=== PATIENT | male | born 1960 | race Caucasian/White ===

== ENCOUNTER 2017-04-22 06:34 | Day surgery (SDC) | payer OTHER ==
[~2017-04-22 06:34] MED LIST: Lactated Ringers 1,000 ML IV SCH; ceFAZolin 2 GM in Premix Bag 1 BAG IV SCH
[2017-04-22] MEDS ORDERED: fentaNYL 100 MCG/2 ML SDV IVPUSH PRN ×2 (07:13→09:14)
[2017-04-22] MEDS ORDERED: Midazolam 1 MG/ML 2 ML SDV IVPUSH ONE (07:13)
--- NOTE | 2017-04-22 07:24 | PCM.PREANE ---
Preanesthetic Assessment - Anesthesia/Transfusion/Family Hx Anesthesia History: Prior Anesthesia Without Reaction Family History of Anesthesia Reaction: No Transfusion History: No Prior Transfusion(s) - Review of Systems General: No Symptoms Pulmonary: No Symptoms Cardiovascular: No Symptoms Gastrointestinal: No Symptoms Neurological: No Symptoms Other: Reports: None - Physical Assessment NPO Status Date: 04/21/17 NPO Status Time: 22:00 O2 Sat by Pulse Oximetry: 92 Respiratory Rate: 14 Vital Signs: Last Vital Signs Temp 36.5 C 04/22/17 06:45 Pulse 77 04/22/17 06:45 Resp 14 04/22/17 06:45 BP 132/79 04/22/17 06:45 Pulse Ox 92 L 04/22/17 06:45 Height: 1.73 m Weight: 113.852 kg ASA Class: 2 Mental Status: Alert & Oriented x3 Airway Class: Mallampati = 2 Dentition: Reports: Missing Tooth/Teeth ROM/Head Extension: Full Lungs: Clear to Auscultation, Normal Respiratory Effort Cardiovascular: Regular Rate, Regular Rhythm - Allergies Allergies/Adverse Reactions: Allergies Allergy/AdvReac Type Severity Reaction Status Date / Time No Known Allergies Allergy Verified 01/14/16 12:45 - Anesthesia Plan Pre-Op Medication Ordered: Other (versed and fentanyl for block placement) - Acknowledgements Anesthesia Type Planned: General Anesthesia, Regional Block Pt an Appropriate Candidate for the Planned Anesthesia: Yes Alternatives and Risks of Anesthesia Discussed w Pt/Guardian: Yes Pt/Guardian Understands and Agrees with Anesthesia Plan: Yes Additional Comments: block used for post op pain controll, not as primary anesthetic. PreAnesthesia Questionnaire - Past Health History Medical/Surgical History: Denies Medical/Surgical History HEENT History: Reports: Other (See Below) Other HEENT History: wears glasses, has dentures but does not wear them Cardiovascular History: Reports: High Cholesterol Respiratory History: Reports: Other (See Below) Other Respiratory History: smoked 2 packs of cigarettes for many years "down to 1 1/2 pks per day" Gastrointestinal History: Reports: None Genitourinary History: Reports: None Musculoskeletal History: Reports: Arthritis Other Musculoskeletal History: arthritis in knees Neurological History: Reports: Other (See Below) Other Neuro History: "pinched nerve" in neck Psychiatric History: Reports: None Endocrine/Metabolic History: Reports: Obesity/BMI 30+ Hematologic History: Reports: None Immunologic History: Reports: None Oncologic (Cancer) History: Reports: None Dermatologic History: Reports: None - Past Surgical History Head Surgeries/Procedures: Reports: None HEENT Surgical History: Reports: None Cardiovascular Surgical History: Reports: None Respiratory Surgical History: Reports: None GI Surgical History: Reports: Colonoscopy, Hernia, Inguinal Male Surgical History: Reports: None Endocrine Surgical History: Reports: None Neurological Surgical History: Reports: None Musculoskeletal Surgical History: Reports: Carpal Tunnel, Other (See Below) Other Musculoskeletal Surgeries/Procedures:: repair of finger tips right hand Oncologic Surgical History: Reports: None Dermatological Surgical History: Reports: None - SUBSTANCE USE Smoking Status *Q: Current Every Day Smoker Tobacco Use Within Last Twelve Months: Cigarettes Second Hand Smoke Exposure: Yes Days Per Week of Alcohol Use: 2 Number of Drinks Per Day: 2 Total Drinks Per Week: 4 Recreational Drug Use History: No Recreational Drug Type: Reports: Marijuana/Hashish - HOME MEDS Home Medications: Home Meds Acetaminophen [Tylenol Extra Strength] 2 tab PO ASDIRECTED PRN 04/17/17 [History ] Diclofenac Sodium [Voltaren] 1 tab PO BID 04/17/17 [History] - CURRENT (IN HOUSE) MEDS Current Meds: Current Medications Hydrocodone Bitart/Acetaminophen ([place] 325-10 Mg) 1 - 2 tab PO Q4H PRN PRN Reason: Pain Fentanyl (Sublimaze) 50 mcg IVPUSH Q5M PRN PRN Reason: Pain Cefazolin Sodium/Dextrose 2 gm (/ Premix) 50 mls @ 100 mls/hr IV ONCALL ANDIE Lactated Ringer's (Ringers, Lactated) 1,000 mls @ 100 mls/hr IV ASDIRECTED [facility] Last Admin: 04/22/17 07:12 Dose: 100 mls/hr Ketorolac Tromethamine (Toradol) 10 mg PO Q6H PRN PRN Reason: Pain Stop: 04/27/17 08:01 Discontinued Medications Midazolam HCl (Versed 1 Mg/Ml) 2 mg IVPUSH ONETIME ONE Stop: 04/22/17 07:14
[2017-04-22] MEDS ORDERED: Dexamethasone 4 MG/ML 5 ML MDV ONE ×2 (07:27→07:39)
[2017-04-22] MEDS ORDERED: Bupivacaine 0.5% 30 ML SDV ONE (07:29)
[2017-04-22] MEDS ORDERED: diphenhydrAMINE 50 MG/ML SDV ONE (07:39)
[2017-04-22] MEDS ORDERED: Succinylcholine/Normal Saline 200 MG/10 ML Syringe ONE (07:39)
[2017-04-22] MEDS ORDERED: Midazolam 1 MG/ML 2 ML SDV ONE (07:39)
[2017-04-22] MEDS ORDERED: Propofol 200 MG/20 ML SDV ONE (07:39)
[2017-04-22] MEDS ORDERED: Ondansetron 4 MG/2 ML SDV ONE (07:39)
[2017-04-22] MEDS ORDERED: Rocuronium 10 MG/ML 10 ML Syringe ONE (07:39)
[2017-04-22] MEDS ORDERED: Lidocaine 2% Jelly 30 ML Tube ONE (07:40)
[2017-04-22] MEDS ORDERED: fentaNYL 250 MCG/5 ML SDV ONE (07:40)
[2017-04-22] MEDS ORDERED: Lidocaine 2% 5 ML SDV ONE (07:40)
[2017-04-22] MEDS ORDERED: Acetaminophen/HYDROcodone 325-10 MG Tab PO PRN (08:00)
[2017-04-22] MEDS ORDERED: Ketorolac 10 MG Tab PO PRN (08:00)
--- NOTE | 2017-04-22 08:52 | PCM.SN ---
- Free Text/Narrative Note: procedure note: placement of interscalene block for post op pain managemen. procedure explained, risks discussed, consent obtained, full monitors, skin preped with chloroprep, lido skin wheel. nerve stimulator used, no parestheia or blood, dosed in 5 ml increments with 0.5% bupivicaine (28 ml) and 8 mf dexamethasone. No comps.
[2017-04-22] MEDS ORDERED: Phenylephrine/Normal Saline 100 MCG/ML 10 ML Syringe ONE (09:48)
--- NOTE | 2017-04-22 10:51 | PCM.OPNOTE ---
- General Post-Op/Procedure Note Date of Surgery/Procedure: 04/22/17 Operative Procedure(s): R shoulder scope with SAD, extensive debridement including biceps tenotomy, DCE, and RTCR Post-Op Diagnosis: R shoulder impingement, degenerative ant/post labral tear, biceps tendonopathy, DJD AC joint, RTC tear Anesthesia Technique: General ET Tube, Regional Block Primary Surgeon: Antoinette Pena Biometrics Head: Scooter Rodriguez in mLs: 10 Condition: Good Free Text/Narrative:: #[id number]
--- NOTE | 2017-04-22 11:27 | PCM.POSTAN ---
POST ANESTHESIA ASSESSMENT - MENTAL STATUS Mental Status: Alert, Oriented - RESPIRATORY Respiratory Status: Respiratory Rate WNL, Airway Patent, O2 Saturation Stable - CARDIOVASCULAR CV Status: Pulse Rate WNL, Blood Pressure Stable - GASTROINTESTINAL GI Status: No Symptoms - PAIN Pain Score: 0 - POST OP HYDRATION Hydration Status: Adequate & Stable
--- NOTE | 2017-04-22 12:57 | PCM48HPAN ---
Post Anesthesia Note - EVALUATION WITHIN 48HRS OF ANESTHETIC Vital Signs in Normal Range: Yes Patient Participated in Evaluation: Yes Respiratory Function Stable: Yes Airway Patent: Yes Cardiovascular Function Stable: Yes Hydration Status Stable: Yes Pain Control Satisfactory: Yes Nausea and Vomiting Control Satisfactory: Yes Mental Status Recovered: Yes
[2017-04-22 14:13] VITALS: BP 116/72
--- NOTE | 2017-04-22 17:05 | OR ---
SURGEON: Antoinette Pena MD DATE OF PROCEDURE: 04/22/2017 PREOPERATIVE DIAGNOSES: 1. Right shoulder impingement syndrome. 2. Right shoulder biceps tendinopathy. 3. Right shoulder rotator cuff tear. 4. Right acromioclavicular joint arthritis. POSTOPERATIVE DIAGNOSES: 1. Right shoulder impingement syndrome. 2. Right shoulder biceps tendinopathy. 3. Right shoulder rotator cuff tear. 4. Right acromioclavicular joint arthritis. 5. Degenerative anterior and posterior labral tear, right shoulder. PROCEDURES: Right shoulder arthroscopy with: 1. Subacromial decompression with release of coracoacromial ligament and acromioplasty. 2. Extensive debridement including debridement of the anterior and posterior degenerative labral tear and biceps tenotomy. 3. Arthroscopic distal clavicle excision. 4. Arthroscopic rotator cuff repair. DECORATION CHECKER: Scooter Rodriguez PA-C. ANESTHESIA: General with interscalene block. ESTIMATED BLOOD LOSS: 10 mL. TOURNIQUET TIME: Zero minutes. COMPLICATIONS: None. DVT PROPHYLAXIS: PAS boots to bilateral lower extremities. IMPLANTS USED: Two Arthrex 4.5 mm corkscrew anchors ([employer]). BRIEF HISTORY: Roosevelt is a 56-year-old male, who has had complaint of progressive right shoulder pain. Persistent right shoulder pain since an injury in February. He has continued to have pain with any type of activity. He did have an MRI, which showed a tear of the rotator cuff along with biceps tendinopathy and acromioclavicular joint arthritis. Due to his lack of response to conservative treatment, I did recommend surgical intervention. The risks and goals of procedure were discussed with the patient and documented preoperatively. He agreed to proceed. DESCRIPTION OF PROCEDURE: The patient was properly identified and brought to the operating room. He was transferred from the OR cart and placed on the operating room table in supine position. General anesthesia was administered. An interscalene block had been administered preoperatively. After adequate anesthesia was obtained, the patient was placed in a beach-chair type position. Care was taken to pad all bony prominences. The head was secured. The right upper extremity was then prepped in standard fashion using ChloraPrep solution. It was then sterilely draped. A time-out was performed to ensure correct site and procedure. Preoperative antibiotics were given. The surgical site had been marked preoperatively. A marking pen was used to identify the bony landmarks. Approximately 30 mL of normal saline was introduced into the glenohumeral joint. A posterior portal arthrotomy was established. Blunt trocar and cannula were introduced into the glenohumeral joint. Camera, inflow, and outflow were assembled. The rotator interval showed some synovitis. The subscapularis showed some degenerative fraying superiorly as well. An anterior portal was then established. The subscapularis was probed and did not appear to have any tearing. The subscapular recess showed no loose bodies. The biceps was then identified. It had synovitis noted at the attachment with some peel back of the attachment of the biceps to the labrum. The biceps was pulled into the joint. Longitudinal fissures were noted distally along the course of the tendon and was elected to proceed with a biceps tenotomy. This was performed with electrocautery. The edges were then smoothed. The anterior and posterior labrum were then inspected. Degenerative tearing was noted. This was resected with a shaver to a stable remnant. The glenoid along with humeral head showed no significant degenerative findings. Axillary pouch was visualized and no loose bodies were identified. Synovitis was noted. The arm was then brought into an abducted and externally rotated position. The bare area was noted posteriorly. As I progressed forward, there appeared to be a full-thickness tear of the anterior portion of the supraspinatus tendon. The arm was then brought back into a neutral position and instruments from were removed from the glenohumeral joint. The blunt trocar and cannula were then inserted into the subacromial space. Again camera, inflow, and outflow were assembled. A lateral portal was established and a shaver was inserted. An extensive bursectomy was performed to allow visualization in the subacromial space. The undersurface of the acromion was cleared. A type 2 acromion had been noted preoperatively. I did use a 5.0 mm dale to perform an acromioplasty following release of the coracoacromial ligament. This provided good decompression of the subacromial space. There was a full-thickness tear along the anterior portion of the supraspinatus. A small portion of cuff tissue remained attached to the footprint. I was able to visualize the humeral head. Soft tissue was then cleared from the acromioclavicular joint. The 5.0 mm dale was then inserted from the anterior portal. Approximately 8 mm of distal clavicle was excised using the dale. Care was taken to keep the superior capsule in place. I then turned my attention back to the rotator cuff. A cuff grasper was used. The edges of the cuff tear were quite frayed, however, I was able to easily pull the torn cuff back to the footprint. An awl was then placed just lateral to the articular cartilage edge and two 4.5 mm corkscrew anchors were placed. The sutures were then passed through the cuff tissue and were tied down without difficulty. I was able to get good reapproximation of the cuff tissue to the footprint. The tear was then probed. It was found to be nearly watertight. I did not feel that additional lateral row was needed. The suture ends were then trimmed. Instruments were then removed from the shoulder. The portal sites were closed with 3-0 nylon. Xeroform gauze was placed over the wound and a bulky dressing was applied. He was placed in a well-padded immobilizer. He was awakened from his anesthetic and transferred back to the operating room cart. He was brought to recovery room in stable condition. All needle and sponge counts were correct. PRIMARY SURGEON: SECONDARY SURGEON: REASON DECORATION CHECKER WAS NECESSARY: ROLE OF DECORATION CHECKER: JULISSA AVILES /[id number]
== END 2017-04-22 13:00 | disposition home or self-care (01) ==
LOC: MW.SDS 06:34
PROVIDERS: ATTEND Orthopaedic Surgery
DX: M75.121 Complete rotator cuff tear or rupture of right shoulder, not specified as traumatic (principal); M75.41 Impingement syndrome of right shoulder; M67.911 Unspecified disorder of synovium and tendon, right shoulder; S43.431A Superior glenoid labrum lesion of right shoulder, initial encounter; M19.011 Primary osteoarthritis, right shoulder; E78.00 Pure hypercholesterolemia, unspecified; F17.210 Nicotine dependence, cigarettes, uncomplicated; M17.0 Bilateral primary osteoarthritis of knee; E66.9 Obesity, unspecified; Z68.38 Body mass index [BMI] 38.0-38.9, adult; Z79.1 Long term (current) use of non-steroidal anti-inflammatories (NSAID); Z98.890 Other specified postprocedural states
CPT/HCPCS: 29824; 29826; 29827; C1713; J1100; J1200; J2250; J2405; J3010; J7120; 01610; 88304; J2704

== ENCOUNTER 2017-09-30 17:47 | Emergency (ER) | payer OTHER ==
--- NOTE | 2017-09-30 18:39 | EDM.PDOC ---
<Nova Van - Last Filed: 09/30/17 18:58> ED HPI GENERAL MEDICAL PROBLEM - General Chief Complaint: Lower Extremity Injury/Pain Stated Complaint: PAIN RT KNEE Time Seen by Provider: 09/30/17 18:36 Source of Information: Reports: Patient History Limitations: Reports: No Limitations - History of Present Illness INITIAL COMMENTS - FREE TEXT/NARRATIVE: History of present illness: []Patient has a torn ACL in his right knee has an appointment with Dr. Pena tomorrow. Patient was trying to get out of his car got caught up on the door, he held onto the door for about 20 minutes before someone was able to help him back into his vehicle. He is unable to put weight on the right knee very to pain. He denies hitting his knee on anything or falling to the ground. Review of systems: As per history of present illness and below otherwise all systems reviewed and negative. Past medical history: As per history of present illness and as reviewed below otherwise noncontributory. Surgical history: As per history of present illness and as reviewed below otherwise noncontributory. Social history: No reported history of drug or alcohol abuse. Family history: As per history of present illness and as reviewed below otherwise noncontributory. Physical exam: General: Well developed, well nourished in NAD HEENT: Atraumatic, normocephalic, pupils reactive, negative for conjunctival pallor or scleral icterus, mucous membranes moist, throat clear, neck supple, nontender, trachea midline. Lungs: Clear to auscultation, breath sounds equal bilaterally, chest nontender. Heart: S1S2, regular, negative for clicks, rubs, or JVD. Abdomen: Soft, nondistended, nontender. Negative for masses or hepatosplenomegaly. Negative for costovertebral tenderness. Pelvis: Stable nontender. Genitourinary: Deferred. Rectal: Deferred. Extremities: Atraumatic, no obvious deformity of right lower extremity, tenderness to palpation limited exam due to pain small effusion noted some pulses are palpable. Neurovascular unremarkable. Neuro: Awake, alert, oriented. Cranial nerves II through XII unremarkable. Cerebellum unremarkable. Motor and sensory unremarkable throughout. Exam nonfocal. Diagnostics: []X-ray right knee pending at time of dictation patient will be signed out to Dr. Michael to review the x-ray once it is done and for final disposition. Therapeutics: []Toradol IM given in the ED Impression: [] Plan: []Keep your appointment Dr. Pena tomorrow, where your brace until your appointment ibuprofen for pain Definitive disposition and diagnosis as appropriate pending reevaluation and review of above. Right Knee Pain Score (Numeric/FACES): 6 - Related Data Allergies Allergy/AdvReac Type Severity Reaction Status Date / Time No Known Allergies Allergy Verified 09/30/17 17:59 Home Meds: Home Meds Acetaminophen [Tylenol] 1,000 mg PO Q4H 09/30/17 [History] Diclofenac Sodium [Voltaren] 75 mg PO BID 09/30/17 [History] Past Medical History - Past Health History Medical/Surgical History: Denies Medical/Surgical History HEENT History: Reports: Other (See Below) Other HEENT History: wears glasses, has dentures but does not wear them Cardiovascular History: Reports: High Cholesterol Respiratory History: Reports: Other (See Below) Other Respiratory History: smoked 2 packs of cigarettes for many years "down to 1 1/2 pks per day" Gastrointestinal History: Reports: None Genitourinary History: Reports: None Musculoskeletal History: Reports: Arthritis Other Musculoskeletal History: arthritis in knees Neurological History: Reports: Other (See Below) Other Neuro History: "pinched nerve" in neck Psychiatric History: Reports: None Endocrine/Metabolic History: Reports: Obesity/BMI 30+ Hematologic History: Reports: None Immunologic History: Reports: None Oncologic (Cancer) History: Reports: None Dermatologic History: Reports: None - Past Surgical History Head Surgeries/Procedures: Reports: None HEENT Surgical History: Reports: None Cardiovascular Surgical History: Reports: None Respiratory Surgical History: Reports: None GI Surgical History: Reports: Colonoscopy, Hernia, Inguinal Male Surgical History: Reports: None Endocrine Surgical History: Reports: None Neurological Surgical History: Reports: None Musculoskeletal Surgical History: Reports: Carpal Tunnel, Shoulder Surgery, Other (See Below) Other Musculoskeletal Surgeries/Procedures:: repair of finger tips right hand Oncologic Surgical History: Reports: None Dermatological Surgical History: Reports: None Social & Family History - Family History Family Medical History: Noncontributory - Tobacco Use Smoking Status *Q: Current Every Day Smoker Years of Tobacco use: 40 Packs/Tins Daily: 1.5 - Caffeine Use Caffeine Use: Reports: Soda - Alcohol Use Days Per Week of Alcohol Use: 2 Number of Drinks Per Day: 4 Total Drinks Per Week: 8 - Recreational Drug Use Recreational Drug Use: No Review of Systems - Review of Systems Review Of Systems: See Below (See history of present illness) ED EXAM, GENERAL - Physical Exam Exam: See Below (The history of present illness) Course - Vital Signs Last Recorded V/S: Last Vital Signs Temp 37.1 C 09/30/17 17:57 Pulse 93 09/30/17 17:57 Resp 18 09/30/17 17:57 BP 169/104 H 09/30/17 17:57 Pulse Ox 95 09/30/17 17:57 - Orders/Labs/Meds Orders: Active Orders 24 hr Category Date Time Status Knee 3V Rt [CR] Stat Exams 09/30/17 18:38 Taken Meds: Medications Discontinued Medications Generic Name Dose Route Start Last Admin Trade Name Freq PRN Reason Stop Dose Admin Ketorolac Tromethamine 60 mg 09/30/17 18:41 09/30/17 18:47 Toradol IM 09/30/17 18:42 60 mg ONETIME ONE Administration Departure - Departure Disposition: Home, Self-Care 01 Condition: Good Clinical Impression: Internal derangement of right knee - Discharge Information Referrals: PCP,None [Primary Care Provider] - Forms: ED Department Discharge Additional Instructions: The following information is given to patients seen in the emergency department who are being discharged to home. This information is to outline your options for follow-up care. We provide all patients seen in our emergency department with a follow-up referral. The need for follow-up, as well as the timing and circumstances, are variable depending upon the specifics of your emergency department visit. If you don't have a primary care physician on staff, we will provide you with a referral. We always advise you to contact your personal physician following an emergency department visit to inform them of the circumstance of the visit and for follow-up with them and/or the need for any referrals to a consulting specialist. The emergency department will also refer you to a specialist when appropriate. This referral assures that you have the opportunity for follow-up care with a specialist. All of these measure are taken in an effort to provide you with optimal care, which includes your follow-up. Under all circumstances we always encourage you to contact your private physician who remains a resource for coordinating your care. When calling for follow-up care, please make the office aware that this follow-up is from your recent emergency room visit. If for any reason you are refused follow-up, please contact the [facility] Emergency Department at and asked to speak to the emergency department charge nurse. Keep your appointment with Dr. Pena tomorrow as scheduled. Wear your knee brace. Ice your knee tonight 20 minutes at a time. Ibuprofen for pain. <Essie Michael - Last Filed: 09/30/17 19:49> ED HPI GENERAL MEDICAL PROBLEM - History of Present Illness INITIAL COMMENTS - FREE TEXT/NARRATIVE: Dr. Michael dictating an addendum note as I assumed care of this patient at 7 PM. X-ray has been reviewed and the patient has a knee immobilizer he would like to use. He was offered crutches and initially declines but we will reevaluate prior to discharge for that. He will be advised to keep his appointment with Dr. Pena tomorrow and to use [id number] ibuprofen. Impression: Right knee pain acute on chronic Review of Systems - Review of Systems Review Of Systems: ROS reveals no pertinent complaints other than HPI. Departure - Departure Time of Disposition: 19:49 Condition: Good
[2017-09-30] MEDS ORDERED: Ketorolac 60 MG/2 ML SDV IM ONE (18:41)
[2017-09-30 20:02] VITALS: BP 146/89
--- NOTE | 2017-10-01 17:27 | CR ---
EXAM DATE: 09/30/17 PATIENT'S AGE: 57 Patient: JULIETTE CARBALLO Facility: [place], [place] Site . Site : [id number] Study: XRay Knee Right [id number]/[id number] 7:35:03 PM Ordering Physician: Rehan Bhatt Final Report: HISTORY: Pain with weightbearing. No injury. History of torn ACL. FINDINGS: Three views of the right knee demonstrates maintenance of the medial and lateral joint spaces. There is decrease of the lateral aspect patellofemoral joint space with articular sclerosis and spurring off the posterior patella. Small amount of suprapatellar joint fluid is present. No fracture dislocation is seen. There is a focus of soft tissue calcification seen along the lateral femoral condyle. IMPRESSION: 1. Degenerative changes of the patellofemoral joint space. 2. Small amount of suprapatellar joint fluid without acute bony abnormality. 3. Focus of soft tissue calcification seen adjacent to the lateral femoral condyle. Question old ligamentous injury. Dictated by Tsering Gonzalez MD @ 09/30/2017 7:46:23 PM Dictated by: Tsering Gonzalez MD @ 09/30/2017 19:46:42 (Electronic Signature) Report Signed by Proxy. KARTIK
== END 2017-09-30 20:08 | disposition home or self-care (01) ==
LOC: MW.ED 17:47
DX: M23.91 Unspecified internal derangement of right knee (principal); F17.210 Nicotine dependence, cigarettes, uncomplicated; E78.00 Pure hypercholesterolemia, unspecified
CPT/HCPCS: 73562; 96372; 99283; J1885

== ENCOUNTER 2017-10-07 09:30 | Day surgery (SDC) | payer OTHER ==
[~2017-10-07 09:30] MED LIST changes: +Acetaminophen/HYDROcodone 325-5 MG Tab PO PRN
[2017-10-07] MEDS ORDERED: Midazolam 1 MG/ML 2 ML SDV ONE (10:22)
[2017-10-07] MEDS ORDERED: ceFAZolin 1 GM Vial ONE (10:22)
[2017-10-07] MEDS ORDERED: Propofol 200 MG/20 ML SDV ONE (10:22)
[2017-10-07] MEDS ORDERED: fentaNYL 250 MCG/5 ML SDV ONE (10:22)
[2017-10-07] MEDS ORDERED: Ondansetron 4 MG/2 ML SDV ONE (10:22)
[2017-10-07] MEDS ORDERED: fentaNYL 100 MCG/2 ML SDV IVPUSH PRN (10:33)
--- NOTE | 2017-10-07 11:51 | PCM.PREANE ---
Preanesthetic Assessment - Procedure Proposed Procedure: right knee scope - Anesthesia/Transfusion/Family Hx Anesthesia History: Prior Anesthesia Without Reaction Family History of Anesthesia Reaction: No Transfusion History: No Prior Transfusion(s) - Review of Systems Other: Reports: None - Physical Assessment NPO Status Date: 10/06/17 NPO Status Time: 22:00 O2 Sat by Pulse Oximetry: 96 Respiratory Rate: 16 Vital Signs: Last Vital Signs Temp 36.6 C 10/07/17 10:12 Pulse 78 10/07/17 10:12 Resp 16 10/07/17 10:12 BP 139/89 10/07/17 10:12 Pulse Ox 96 10/07/17 10:12 Height: 5 ft 8 in Weight: 120.656 kg ASA Class: 2 Mental Status: Alert & Oriented x3 Airway Class: Mallampati = 3 Dentition: Reports: Normal Dentition ROM/Head Extension: Full - Allergies Allergies/Adverse Reactions: Allergies Allergy/AdvReac Type Severity Reaction Status Date / Time No Known Allergies Allergy Verified 10/02/17 07:45 - Blood Blood Available: No - Acknowledgements Anesthesia Type Planned: General Anesthesia Pt an Appropriate Candidate for the Planned Anesthesia: Yes Alternatives and Risks of Anesthesia Discussed w Pt/Guardian: Yes Pt/Guardian Understands and Agrees with Anesthesia Plan: Yes PreAnesthesia Questionnaire - Past Health History Medical/Surgical History: Denies Medical/Surgical History HEENT History: Reports: Other (See Below) Other HEENT History: wears glasses, has dentures but does not wear them Cardiovascular History: Reports: High Cholesterol Respiratory History: Reports: Other (See Below) Other Respiratory History: smoked 2 packs of cigarettes for many years "down to 1 1/2 pks per day" Gastrointestinal History: Reports: None Genitourinary History: Reports: None Musculoskeletal History: Reports: Arthritis Other Musculoskeletal History: arthritis in knees Neurological History: Reports: None Psychiatric History: Reports: None Endocrine/Metabolic History: Reports: Obesity/BMI 30+ Hematologic History: Reports: None Immunologic History: Reports: None Oncologic (Cancer) History: Reports: None Dermatologic History: Reports: None - Past Surgical History Head Surgeries/Procedures: Reports: None HEENT Surgical History: Reports: None Cardiovascular Surgical History: Reports: None Respiratory Surgical History: Reports: None GI Surgical History: Reports: Colonoscopy, Hernia, Inguinal Male Surgical History: Reports: None Endocrine Surgical History: Reports: None Neurological Surgical History: Reports: None Musculoskeletal Surgical History: Reports: Carpal Tunnel, Shoulder Surgery, Other (See Below) Other Musculoskeletal Surgeries/Procedures:: repair of finger tips right hand, rt middle finger amputation, hx rt RTCR Oncologic Surgical History: Reports: None Dermatological Surgical History: Reports: None - SUBSTANCE USE Smoking Status *Q: Current Every Day Smoker Tobacco Use Within Last Twelve Months: Cigarettes Recreational Drug Use History: No - HOME MEDS Home Medications: Home Meds Acetaminophen [Tylenol] 1,000 mg PO Q4H 09/30/17 [History] Diclofenac Sodium [Voltaren] 75 mg PO BID 09/30/17 [History] - CURRENT (IN HOUSE) MEDS Current Meds: Current Medications Hydrocodone Bitart/Acetaminophen (Turner 325-5 Mg) 1 - 2 tab PO Q4H PRN PRN Reason: Pain Fentanyl (Sublimaze) 50 mcg IVPUSH SEECOMMENT PRN PRN Reason: Pain (moderate 4-6) Cefazolin Sodium/Dextrose 2 gm (/ Premix) 50 mls @ 100 mls/hr IV ONCALL ANDIE Lactated Ringer's (Ringers, Lactated) 1,000 mls @ 100 mls/hr IV ASDIRECTED ANDIE Last Admin: 10/07/17 10:07 Dose: 100 mls/hr Discontinued Medications Cefazolin Sodium (Ancef) Confirm Administered Dose 2 gm .ROUTE .STK-MED ONE Stop: 10/07/17 10:23 Fentanyl (Sublimaze) Confirm Administered Dose 250 mcg .ROUTE .STK-MED ONE Stop: 10/07/17 10:23 Midazolam HCl (Versed 1 Mg/Ml) Confirm Administered Dose 2 mg .ROUTE .STK-MED ONE Stop: 10/07/17 10:23 Ondansetron HCl (Zofran) Confirm Administered Dose 4 mg .ROUTE .STK-MED ONE Stop: 10/07/17 10:23 Propofol (Diprivan 20 Ml) Confirm Administered Dose 200 mg .ROUTE .STK-MED ONE Stop: 10/07/17 10:23
[2017-10-07] MEDS ORDERED: Labetalol 100 MG/20 ML MDV ONE (12:49)
[2017-10-07] MEDS ORDERED: Ketorolac 30 MG/ML SDV ONE (13:05)
--- NOTE | 2017-10-07 13:08 | PCM.OPNOTE ---
- General Post-Op/Procedure Note Date of Surgery/Procedure: 10/07/17 Operative Procedure(s): R knee scope with PLM/PMM Post-Op Diagnosis: DJD R knee. R knee med/lat meniscus tear. R knee ACL tear Anesthesia Technique: General LMA Primary Surgeon: Antoinette Pena Student Specialist: Franklyn Butler Output, Urine Amount: 5 Condition: Good Free Text/Narrative:: tt=38 min #[id number]
--- NOTE | 2017-10-07 13:28 | PCM.POSTAN ---
POST ANESTHESIA ASSESSMENT - MENTAL STATUS Mental Status: Alert, Oriented - RESPIRATORY Respiratory Status: Respiratory Rate WNL, Airway Patent, O2 Saturation Stable - CARDIOVASCULAR CV Status: Pulse Rate WNL, Blood Pressure Stable - GASTROINTESTINAL GI Status: No Symptoms - POST OP HYDRATION Hydration Status: Adequate & Stable
[2017-10-07] MEDS ORDERED: Lidocaine 1% 20 ML MDV ONE (13:40)
--- NOTE | 2017-10-07 13:41 | OR ---
SURGEON: Antoinette Pena MD DATE OF PROCEDURE: 10/07/2017 PREOPERATIVE DIAGNOSES: 1. Right knee degenerative joint disease. 2. Right knee medial and lateral meniscus tear. 3. Right knee ACL tear. POSTOPERATIVE DIAGNOSES: 1. Right knee degenerative joint disease. 2. Right knee medial and lateral meniscus tear. 3. Right knee ACL tear. PROCEDURES: Right knee arthroscopy with partial medial and lateral meniscectomies. PRODUCT DEVELOPMENT CARPENTER: Franklyn Allen MD, PGY2. ANESTHESIA: General. ESTIMATED BLOOD LOSS: 5 mL. TOURNIQUET TIME: See nursing notes. COMPLICATIONS: None. DVT PROPHYLAXIS: Not indicated. IMPLANTS USED: None. BRIEF HISTORY: Roosevelt is a 57-year-old male, who has had complaint of progressive right knee pain following a work injury. An MRI did show a tear of the medial and lateral meniscus along with the ACL. Degenerative changes were also noted. Due to his lack of response to conservative treatment, I did recommend surgical intervention. The risks and goals of procedure were discussed with the patient and were documented preoperatively. He agreed to proceed. DESCRIPTION OF PROCEDURE: The patient was properly identified and brought to the operating room. He was transferred from the OR cart and placed on the operating table in supine position. General anesthesia was administered. After adequate anesthesia was obtained, a well-padded tourniquet was applied to the right lower extremity. The right lower extremity was then prepped in standard fashion using ChloraPrep solution. It was then sterilely draped. A time-out was performed to ensure correct site and procedure. Preoperative antibiotics were given. The surgical site had been marked preoperatively. An Esmarch was used to exsanguinate the right lower extremity and tourniquet was inflated to 250 mmHg. A lateral portal arthrotomy was established. Blunt trocar and cannula were introduced into the suprapatellar space. Camera, inflow, and outflow were assembled. No significant synovitis was noted. The patellofemoral joint was visualized. 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 Grade 3 chondromalacia was noted along the trochlea. The patella appeared to track centrally. I then extended down the lateral and medial gutter. No loose bodies were identified. I then entered the medial compartment. A medial portal arthrotomy was established. A blunt probe was inserted. He was found to have a large bucket- handle tear of the medial meniscus, which appeared to be flipped into the joint. I was able to use a probe to push this back into place. The tear occurred along the red-white zone. Extensive degenerative fraying was noted at the tear site and I did not feel it was amenable to repair. Using a combination of biters and shaver, this was resected back to a stable remnant. The remaining meniscus was probed and found to be intact. The joint surfaces showed findings consistent with grade 2 to grade 3 chondromalacia diffusely along the medial tibial plateau as well as the medial femoral condyle. I then entered the notch. He did have an ACL in place; however, when I probed this, it was quite redundant. There were some loose fibers of the ACL as well, which were resected with a shaver. He did have anterior translation of the tibia when visualizing the ACL with anterior translation of the tibia. The remaining ACL fibers did not appear to be competent. The PCL was probed and found to be intact. I then entered the lateral compartment. Grade 2 to grade 3 degenerative changes were noted along the lateral tibial plateau. Grade 2 chondromalacia was noted along the lateral femoral condyle. The meniscus was probed. Extensive degenerative fraying was noted along the anterior horn of the lateral meniscus. Using a combination of biters and shaver, this was resected back to a stable remnant. I then re-entered the patellofemoral joint. The joint surfaces were probed and no loose cartilage fragments were noted. He had hypertrophy of the fat pad, which appeared to be causing some impingement within the patellofemoral joint. A portion of this was resected without difficulty. The instruments were then removed from the knee. The portal sites were closed with 3-0 nylon. 1% lidocaine was injected along the portal tracts. Xeroform gauze was placed over the wound and a bulky dressing was applied. The tourniquet was then deflated. He was awakened from his anesthetic and transferred back to the operating room cart. He was brought to recovery room in stable condition. All needle and sponge counts were correct. JULISSA / STEFAN /[id number]
--- NOTE | 2017-10-07 14:35 | PCM48HPAN ---
Post Anesthesia Note - EVALUATION WITHIN 48HRS OF ANESTHETIC Vital Signs in Normal Range: Yes Patient Participated in Evaluation: Yes Respiratory Function Stable: Yes Airway Patent: Yes Cardiovascular Function Stable: Yes Hydration Status Stable: Yes Pain Control Satisfactory: Yes Nausea and Vomiting Control Satisfactory: Yes Mental Status Recovered: Yes Resp Rate: 18
[2017-10-07 17:27] VITALS: BP 132/78
== END 2017-10-07 15:00 | disposition home or self-care (01) ==
LOC: MW.SDS 09:30
PROVIDERS: ATTEND Orthopaedic Surgery
DX: S83.211A Bucket-handle tear of medial meniscus, current injury, right knee, initial encounter (principal); S83.281A Other tear of lateral meniscus, current injury, right knee, initial encounter; S83.511A Sprain of anterior cruciate ligament of right knee, initial encounter; M94.29 Chondromalacia, multiple sites; M17.11 Unilateral primary osteoarthritis, right knee; J44.9 Chronic obstructive pulmonary disease, unspecified; F17.210 Nicotine dependence, cigarettes, uncomplicated; E66.9 Obesity, unspecified; Z68.41 Body mass index [BMI] 40.0-44.9, adult; E78.00 Pure hypercholesterolemia, unspecified; X58.XXXA Exposure to other specified factors, initial encounter
CPT/HCPCS: 29880; 88304; A9270; J0690; J1885; J2250; J2405; J3010; J7120; 01400; J2704

== ENCOUNTER 2024-07-06 12:46 | Emergency (ER) | payer OTHER ==
[2024-07-06 12:52] VITALS: BP 119/77; PULSE 63
[2024-07-06] MEDS: Diphtheria,Pertussis(Acell),Tetanus Vaccine 0.5 ML Syringe IM ONE (13:19)
[2024-07-06] MEDS: ceFAZolin 1 GM Vial IM STA (13:19)
[2024-07-06] MEDS: Lidocaine 1% 10 ML MDV INJECT STA (13:19)
[2024-07-06] MEDS: Water For Injection, Sterile 10 ML SDV INJECT ONE ×2 (13:25)
[2024-07-06] MEDS: Water For Injection, Sterile 20 ML ONE (13:25)
== END 2024-07-06 14:34 | disposition home or self-care (01) ==
LOC: MW.ED 12:46
DX: S62.634B Displaced fracture of distal phalanx of right ring finger, initial encounter for open fracture (principal); E78.00 Pure hypercholesterolemia, unspecified; J44.9 Chronic obstructive pulmonary disease, unspecified; F17.210 Nicotine dependence, cigarettes, uncomplicated; Z23 Encounter for immunization; Z75.8 Other problems related to medical facilities and other health care; Z79.899 Other long term (current) drug therapy; W23.1XXA Caught, crushed, jammed, or pinched between stationary objects, initial encounter; Y93.89 Activity, other specified
CPT/HCPCS: 12001; 73130-26-RT; 73130-RT; 90471; 90715; 96372; 99283-25; J0690; J3490